=== PATIENT | female | born 1965 | race Caucasian/White ===

== ENCOUNTER 2018-06-18 13:38 | Emergency (ER) | payer OTHER ==
[~2018-06-18] VITALS: Ht 160 cm; Wt 56.7 kg
[2018-06-18] MEDS ORDERED: SYNTHROID50 MCG PO (13:56)
[2018-06-18] MEDS ORDERED: ZITHROMAX500 MG PO (19:36)
== END 2018-06-18 19:43 | disposition home or self-care (01) ==
LOC: ER 13:38
DX: H66.91 Otitis media, unspecified, right ear (principal); J31.2 Chronic pharyngitis

== ENCOUNTER 2022-09-24 15:48 | Emergency (ER) | payer OTHER ==
[~2022-09-24] VITALS: Ht 162.6 cm; Wt 51.3 kg
[~2022-09-24 15:48] MED LIST: SYNTHROID50 MCG PO; ZITHROMAX500 MG PO
[2022-09-24] MEDS ORDERED: FOSAMAX70 MG PO (16:58)
== END 2022-09-24 19:07 | disposition home or self-care (01) ==
LOC: ER 15:48
DX: R53.81 Other malaise (principal); R51.9 Headache, unspecified; R11.10 Vomiting, unspecified